=== PATIENT | male | born 1960 | race Caucasian/White ===

== ENCOUNTER 2021-10-30 12:31 | Emergency (ER) | payer BC, SELFPAY ==
[2021-10-30 13:05] VITALS: BP 132/78; PULSE 68; RESP 19; TEMP 36.9; O2SAT 100; BMI 28.5
--- NOTE | 2021-10-30 13:25 | HMH.EDUTC ---
[facility] Disposition Clinical Impression: Upper respiratory infection, viral Disposition: Home, Self-Care Condition on Discharge: Good Instructions: DI for Viral Upper Respiratory Infection -- Adult Additional Instructions: covid swab was sent to lab, call later today for results. self isolate until test results are known to be negative No sign of a bacterial infection. Likely viral. Viruses can take 7-14 days to run their course. Nasal saline and bulb syringe or nose Susanne to remove nasal drainage to help with nasal congestion. Hard to eat, drink, sleep with nasal congestion so important to keep this cleaned out. Monitor temp. Tylenol or Motrin as needed for pain or fever Encourage fluids, water, Gatorade, Powerade, Pedialyte if /toddler/child Warm salt water gargles Warm fluids Sore throat lozenges Sleep elevated Humidifier/vaporizer Follow-up immediately for new or worsening symptoms or no noticeable improvement over the next 48-72 hours. Referrals: Denis Taylor MD [Primary Care Provider] - Time of Disposition: 13:31 Medical Decision Making - Helder Inquiry Pt receiving controlled substance: No Vital Signs: 10/30/21 13:05 Temperature 98.4 F Temperature Source Oral Pulse Rate [Right Brachial] 68 Respiratory Rate 19 Blood Pressure [Right Arm] 132/78 Blood Pressure Mean [Right Arm] 96 Blood Pressure Source [Right Arm] Automatic Cuff Blood Pressure Position [Right Arm] Sitting 02 Sat by Pulse Oximetry 100 Oxygen Delivery Method Room Air [facility] HPI - General Chief complaint: Urgent Treatment Center Stated complaint: covid symptoms Time Seen by Provider: 10/30/21 13:25 Mode of Arrival: Ambulatory Source of Information: Patient Limitations: No Limitations Description of Symptoms (Recalled from Triage Doc. by RN): PATIENT C/O BODY ACHES AND FEVER X 1 WEEK HEENT Symptoms (Recalled from RN notes): No Resp Symptoms (Recalled from RN notes): No Skin Symptoms (Recalled from RN notes): No MS Symptoms (Recalled from RN notes): Yes Functional Status (Recalled from RN notes): WNL - History of Present Illness Provider Complaint: 61 yr old male presents for body aches,cough and fever for 3 days. - Related Data Allergies Allergy/AdvReac Type Severity Reaction Status Date / Time No Known Allergies Allergy Verified 10/30/21 13:22 - Worker's Comp Is this a Worker's Comp case?: No [facility] History - Hepatitis A Screen Drug use history?: No High risk sexual behaviors?: No History of sexually transmitted infection?: No Currently employed?: No Childcare worker?: No Do you have indoor plumbing?: Yes Do you have electricity?: Yes Attestation statement:: This patient has been screened for Hepatitis A risk factors. I have reviewed the patient's past medical history: Yes ROS Obtained: Yes Systems reviewed as appropriate & no additional complaints - Constitutional Constitutional: Reports system reviewed and no additional complaints, except as docu, Reports body ache, Denies fatigue, Reports fever(s) - Eyes Eyes: Reports system reviewed and no additional complaints, except as docu, Denies dry eyes - ENT Ears, Nose, Mouth, and Throat: Reports system reviewed and no additional complaints, except as docu, Reports nasal congestion, Denies sore throat - Cardiovascular Cardiovascular: Reports system reviewed and no additional complaints, except as docu, Denies chest pain - Respiratory Respiratory: Reports system reviewed and no additional complaints, except as docu, Denies change in phlegm color, Reports cough - Gastrointestinal Gastrointestingal: Reports: system reviewed and no additional complaints, except as docu. Denies: abdominal pain - Genitourinary Male Genitourinary: Reports system reviewed and no additional complaints, except as docu - Musculoskeletal Musculoskeletal: Reports system reviewed and no additional complaints, except as docu, Denies joint pain - Integumentary/Breasts Skin/B
[2021-10-30 13:30] LABS: UTC Influenza A Antigen Negative (Negative); UTC Influenza B Antigen Negative (Negative)
[2021-10-30 13:37] VITALS: BP 132/78; PULSE 68; RESP 19; TEMP 36.9; O2SAT 100
[2021-10-30 14:34] LABS: Adenovirus,PCR Not Detected (NotDetected); Bordetella Pertussis Not Detected (NotDetected); Chlamydophila Pneumoniae, PCR Not Detected (NotDetected); Coronavirus 229E Not Detected (NotDetected); Coronavirus NL63 Not Detected (NotDetected); Coronavirus OC43 Not Detected (NotDetected); Coronovirus HKU1,PCR Not Detected (NotDetected); Human Metapneumovirus Not Detected (NotDetected); Influenza A, PCR Not Detected (NotDetected); Influenza AH1, 2009 Not Detected (NotDetected); Influenza AH1, PCR Not Detected (NotDetected); Influenza AH3,PCR Not Detected (NotDetected); Influenza B, PCR Not Detected (NotDetected); Mycoplasma Pneumoniae, PCR Not Detected (NotDetected); Parainfluenza 1, PCR Not Detected (NotDetected); Parainfluenza 2, PCR Not Detected (NotDetected); Parainfluenza 3, PCR Not Detected (NotDetected); Parainfluenza 4, PCR Not Detected (NotDetected); Respiratory Syncytial Virus Not Detected (NotDetected); Rhinovirus/Enterovirus Not Detected (NotDetected)
[2021-10-30 16:00] LABS: Coronavirus 19, PCR Detected (NotDetected)
== END 2021-10-30 13:41 | disposition home or self-care (01) ==
PROVIDERS: Emergency Provider Nurse Practitioner Family; PCP Family Medicine
DX: U07.1 COVID-19 (principal); J06.9 Acute upper respiratory infection, unspecified
CPT/HCPCS: 87581; 87632; 87798; 87804; 99202; C9803; G0463; U0003; U0005

== ENCOUNTER → 2023-05-24 07:59 | Outpatient (CLI) | payer BC, SELFPAY ==
--- NOTE | 2023-05-24 08:03 | CT_ITS ---
FINAL REPORT TECHNIQUE: Axial CT images of the chest were obtained without contrast. Low-dose protocol was utilized. This study was performed with techniques to keep radiation doses as low as reasonably achievable (ALARA). Individualized dose reduction techniques using automated exposure control or adjustment of mA and/or kV according to the patient's size were employed. CLINICAL HISTORY: H/O TOBACCO USE, former smoker quit 20 years ago. smoked 1.5 ppd x 30 years COMPARISON: None FINDINGS: CT CHEST WITHOUT, LOW DOSE SCREENING CT Di Vol: 2.90 mGy DLP: 105.25 mGy*cm There is no axillary, mediastinal, or hilar adenopathy. The heart size is normal. There is no pleural or pericardial effusion. The lung windows show an 8 mm right lower lobe nodule seen on image 56. There are scattered other less than 5 mm bilateral pulmonary nodules. There is mild emphysema. Mild scarring. Limited images of the upper abdomen demonstrate no acute findings. IMPRESSION: LR Category 4A: 3 month follow-up low-dose chest CT is recommended. Reviewed, Interpreted and Dictated by Lyndon Mcpherson III, MD Transcribed by Izabel Phipps Authenticated and . [facility]
== END ==
PROVIDERS: PCP Family Medicine; Visit Provider Family Medicine
DX: Z87.891 Personal history of nicotine dependence (principal); Z12.2 Encounter for screening for malignant neoplasm of respiratory organs
CPT/HCPCS: 71271

== ENCOUNTER → 2023-08-31 14:40 | Outpatient (CLI) | payer BC, SELFPAY ==
--- NOTE | 2023-08-31 14:46 | CT_ITS ---
FINAL REPORT TECHNIQUE: Axial images were obtained from the lung apex to the mid abdomen by computed tomography. Coronal and sagittal reformatted images were obtained. This study was performed with techniques to keep radiation doses as low as reasonably achievable, (ALARA). Individualized dose reduction techniques using automated exposure control or adjustment of mA and/or kV according to the patient's size were employed. CLINICAL HISTORY: ABNORMAL CT LUNG SCREENING COMPARISON: 05/24/2023 FINDINGS: Multiple small axillary nodes are noted. There is no hilar or mediastinal adenopathy. Mild changes of emphysema are present as well as mild scarring. Heart size is normal. There is no pericardial or pleural effusion. Limited images of the upper abdomen are unremarkable. There is an 8 mm lobular ground glass nodule noted in the right lower lobe on image #60, stable. There is a 4 mm nodule in the right lower lobe, seen on image #70, also stable. No new masses or nodules are identified. Several small calcified granulomas are present. IMPRESSION: No change 8 mm lobular groundglass nodule since the prior CT of May 24. This is a category 3 exam, and would suggest a 6-month follow-up LDCT. Reviewed, Interpreted and Dictated by Lyndon Mcpherson III, MD Transcribed by Yasmin Saucedo Authenticated and [facility]
== END ==
PROVIDERS: PCP Family Medicine; Visit Provider Family Medicine
DX: R91.8 Other nonspecific abnormal finding of lung field (principal)
CPT/HCPCS: 71250

== ENCOUNTER 2025-04-03 07:48 | Outpatient (CLI) | payer OTHER, SELFPAY ==
--- NOTE | 2025-04-03 07:53 | CT_ITS ---
FINAL REPORT TECHNIQUE: Thin section axial images were obtained from the lung apices to the upper abdomen by computed tomography. Reformatted images were obtained and reviewed. This study was performed with techniques to keep radiation doses al low as reasonably achievable (ALARA). Individualized dose reduction techniques using automated exposure control or adjustment of mA and/or kV according to the patient's size were employed. CLINICAL HISTORY: lung screening, former smoke (quit 20 yrs ago), smoked 1 pack per day for 25 yrs. COMPARISON: Chest CT, 08/31/2023, LDCT, 05/24/2023 FINDINGS: CHEST CT LOW DOSE 64-year-old male, former smoker who quit 20 years ago, 69-rfzu-debn history CTDI vol (mGy): 2.90 DLP (mGy-cm): 108.64 There is no axillary adenopathy. There is no mediastinal or hilar mass or adenopathy. The heart is normal in size. There is no pericardial or pleural effusion. Lung window images demonstrate a persistent ill-defined opacity in the right lower lobe, measuring 7 mm in size, best seen on image #62 of series 4, stable. There is a 4 mm nodule in the right lung base, best seen on image #71 of series 4, also stable. These have been stable since the prior CT of 05/24/2023, favor benign. No new nodules are identified. Limited images of the upper abdomen are unremarkable. IMPRESSION: Lung-RADS category 1. Recommend 12 month follow up low dose chest CT. Reviewed, Interpreted and Dictated by Azeem Christian MD Transcribed by Yasmin Saucedo Authenticated and [facility]
== END 2025-04-03 23:59 | disposition home or self-care (01) ==
LOC: RAD 07:48
PROVIDERS: PCP Family Medicine; Visit Provider Family Medicine
DX: R91.8 Other nonspecific abnormal finding of lung field (principal); Z12.2 Encounter for screening for malignant neoplasm of respiratory organs
CPT/HCPCS: 71271

== ENCOUNTER 2025-10-31 12:42 | Outpatient (CLI) | payer OTHER, SELFPAY ==
--- NOTE | 2025-10-31 12:51 | ECG_ITS ---
APPROVED REPORT Exam: Resting ECG HR:42 bpm ECG Measurements Heart Rate 42 AXES [place] 146 P 47 QRSd 101 QRS 19 QT 431 T 17 QTc 371 Conclusion SINUS BRADYCARDIA BORDERLINE ECG UNCONFIRMED REPORT Electronically signed by : Alexis Daniels MD 11/01/2025 21:54:57
== END 2025-10-31 23:59 | disposition home or self-care (01) ==
LOC: RT 12:42
PROVIDERS: PCP Family Medicine; Visit Provider Family Medicine
DX: R00.1 Bradycardia, unspecified (principal)
CPT/HCPCS: 93005

== ENCOUNTER 2025-11-10 10:23 | Outpatient (CLI) | payer OTHER, SELFPAY ==
--- OUTSIDE RECORDS SUMMARY | 2024-09-20 05:00 | XMS_ITS ---
Author Organization [facility] Address [address] [facility] [address] [facility] [address] [place] [id number] Care Team Providers Care Safety Admin Assistant Name Role Phone Antonio Taylor Primary Care Provider REASON FOR VISIT 6 mo ck up fasting, Needs labs, low dose chest CT, shingles & flu vaccines Encounters Encounter Location Date Provider Diagnosis [facility] [address] [facility] [address] [facility] [address] [place] [id number] 09/20/2024 Antonio Taylor Plan Of Treatment Next Appt Details Provider Name:Antonio Coffey er, 11/28/2025 11:30:00 AM, [address] [facility], [address], [place], [id number], Progress Notes * Myke LYNNDOB:1960 (65 yo M)Acc No.[id number]:09/20/2024 Progress Notes Patient: Myke KRISHNAMURTHY Provider: Antonio Taylor M.D. :1960 A ge:64 Y S ex:Male Date:09/20/2024 Address:[address] [place] [address] [id number] Subjective: * Chief Complaints: * 1 . 6 mo ck up fasting. 2. Needs labs, low dose chest CT, shingles & flu vaccines. * Medical History: Objective: * Vitals: Assessment: Plan: * Treatment: * Images: Billing Information: * Visit Code: * Procedure Codes: * Electronic signature of Antonio Taylor MD on 11/10/2025 at 10:26 AM EST Sign off status: Pending * Provider: Antonio Taylor M.D. Date: 11/20/2023 Generated for Arminda garcia/Americo/Tierra on: 01/11/2025 10:26 AM EST
--- OUTSIDE RECORDS SUMMARY | 2025-03-24 09:15 | XMS_ITS ---
Author Organization [facility] Address [address] [facility] [address] [place] [id number] Care Team Providers Care Test Skein Winder Name Role Phone Antonio Taylor Primary Care Provider [phone] Allergies No Known Allergies Results Component Value Reference Range Notes P-Comprehensive Metabolic Pa rhonda (CMP) Reviewed date:04/21/2025 04:17:20 PM Interpretation:alt 78 Performing Lab: Notes/Report: Test performed by [employer] [address] [place], [place] [address] [facility] [address] , [address], [place] [address] Raymon Sauer MD, Jockey Agent CLIA: [id number] Sodium 141 135-145 mmol/L Potassium 4.6 3.5-5.3 mmol/L Chloride 104 97-108 mmol/L CO2 25 22-32 mmol/L Glucose 89 65-99 mg/dL BUN 12 8-23 mg/dL Creatinine 0.93 0.70-1.30 mg/dL Calcium 10.1 8.6-10.4 mg/dL eGFR by Creatinine 92 >59 mL/min/1.73m2 Protein 7.5 6.0-8.3 g/dL Albumin 4.7 3.5-5.3 g/dL Alkaline Phosphatase 120 40-129 IU/L ALT (SGPT) 78 <5-55 IU/L AST (SGOT) 42 <5-46 IU/L Bilirubin, Total 0.3 <0.2-1.2 mg/dL A/G Ratio 1.7 1.1-2.5 P-PSA Reviewed date:04/21/2025 04:17:41 PM Interpretation:4.89 Performing Lab: Notes/Report: Test performed by [facility] [address] [facility] , [address], [place] [address] Raymon Sauer MD, Jockey Agent CLIA: [id number] PSA 4.89 <4.00 ng/mL Please note this is an ultrasensitive PSA assay with a lower limit of detection of 0.014 ng/mL. This test is performed by the María ECLIA methodology. Values obtained with different assay methods or kits cannot be directly compared. CT Scan : Chest, low dose Reviewed date:04/04/2025 04:10:06 PM Interpretation:nothing suspicious, annual f/u Performing Lab: Notes/Report: nothing suspicious, annual f/u Reason For Referral Reason chest pain Diagnosis 1 Chest pain, unspecif ied type (R07.9) Referral Organization [facility] Referring Provider First Name Antonio Pennington Referring Provider Last Name Brandon Referring Provider Speciality [facility] ctice Referred Provider Specialty Cardiovascul ar Disease General Notes Sandra Mazariegos 2024 03:00:54 PM > faxed to [facility] Cardiology Referral Priority Routine REASON FOR VISIT check up, Needs labs with PSA, low dose chest CT, & shingles vaccine Medications Medication SIG (Take, Route, Frequency, Duration) Notes Start Date End Date Status Esomeprazole Magnesium 40 MG 1 cap(s) Orally Once a day; Duration: 30 days 03/24/2025 Active Bisoprolol Fumarate 5 MG 1/2 tab(s) oral ly once a day; Duration: 90 days 07/20/2022 Active Temazepam 30 MG 1 capsule at bedtime as needed Orally Once a day 03/24/2025 Active Rosuvastatin Calcium 10 MG 1 tab(s) oral ly once a day; Duration: 90 days 07/20/2022 Active Aspirin Adult Low Dose 81 MG 1 tab(s) orally bedtime 12/01/2016 Acti ve Problems Problem Type SNOMED Code ICD Code Onset Dates Problem Status W/U Status Risk Notes Problem Elevated PSA (694063753) Elevated PSA (R97.20) Active confirmed Problem Chest pain (94170736) Chest pain, unspecified type (R07.9) Active confirmed Vital Signs Blood pressure systolic 140 mm Hg 03/24/20 25 Blood pressure diastolic 90 mm Hg 025 Heart Rate 52 /min 03/24/2025 Height 67 in 03/24/2025 Weight 191.4 lbs 03/24/2025 BMI 29.97 kg/m2 03/24/2025 Encounters Encounter Location Date Provider Diagnosis [facility] [address] [facility] [address] [facility] [address] [place] [id number] 03/24/2025 Antonio Taylor Essential hypertensi on I10 ; Elevated PSA R97.20 ; Chest pain, unspecified type R07.9 ; Hyperlipidemia, unspecified hyperlipidemia type E78.5 ; Other insomnia G47.09 and BMI 29.0-29.9,adult Z68.29 Assessments Encounter Date Diagnosis (ICD Code) Assessment Notes Treatment Notes Treatment Clinical Notes Section Notes 03/24/2025 Essential hypertension (ICD-10 - I10) 03/24/2025 Elevated PSA (ICD-10 - R97.20) 03/24/2025 Chest pain, unspecified type (ICD-10 - R07.9) 03/24/2025 Hyperlipidemia, unspecified hyperlipidemia type (ICD-10 - E78.5) 03/24/2025 Other insomnia (ICD-10 - G47.09) 03/24/2025 BMI 29.0-29.9,adult (ICD-10 - Z68.29) Plan Of Treatment Medication Medication Name Sig Start Date Stop Date Notes Esomeprazole Magnesium 40 MG 1 cap(s) Or ally Once a day; Duration: 30 days 03/24/2025 Temazepam 30 MG 1 capsule at bedtime as needed Orally Once a day 03/24/2025 Rosuvastatin Calcium 10 MG 1 tab(s) oral ly once a day; Duration: 90 days 07/20/2022 Referrals Referral Date Details 03/24/2025 03/24/2025, chest pa in Next Appt Details Follow Up: 4 Weeks, Reason: Provider Name:Atnonio Coffey er, 11/28/2025 11:30:00 AM, [address] [facility] [address] [facility], [address], [place], [id number], Progress Notes * Myke LYNNDOB:1960 (65 yo M)Acc No.[id number]:03/24/2025 Progress Notes Patient: Roosevelt KRISHNAMURTHYmy Provider: Antonio Taylor M.D. :1960 A ge:64 Y S ex:Male Date:03/24/2025 Address:[address] [id number] Subjective: * Chief Complaints: * 1 . Check up. 2. Needs labs with PSA, low dose chest CT, & shingles vaccine. * HPI: G astroenterology: The pt is here today with c/o upper abdominal bloating and shortness of breath. Pt states the shortness of breath is worse when he lays down at night. 64 year old male presents with c/o Abdominal Pain e pigastric. Denies : Nausea. D enies : Vomiting. D enies : Diarrhea. D enies : Fever. D enies : Blood in Stool. C onstitutional: Last visit was February of 2024. PSA at that time was mildly elevated 4.01. C ardiology: 2017 cardiac studies reviewed. 40-50% RCA stenosis. Also stable lung nodule. * ROS: D ERMATOLOGY: no R susanne. n o H alexander. G ASTROENTEROLOGY: no N ausea. n o V omiting. n o D iarrhea.? U ROLOGY: no D ifficulty urinating. n o B lood in urine. * Medical History: s kin cancer, Dr. Marcano in [place], PSA WNL 07/22/22. * Surgical History: h eart cath 40-50% stenosis RCA 12/07/2016, Right Shoulder Repair - Dr. Mosquera at [facility] 03/02/2018. * Hospitalization/Major Diagno stic Procedure: [facility] /covid Oct 2021. * Family History: F ather: alive. M other: , diagnosed with Hypertension, Heart Disease. 1 brother(s) , 1 sister(s) - healthy. 1 son(s) , 1 daughter(s) - healthy. . Pt Uncles on his mother side passed from heart attack. * Social History: C URRENT TOBACCO USE: No S moking Status: P atient does NOT smoke quit 12 years ago.?Caffeine: yes, frequency:. Exercise: no. Marital Status: Single. Occupation: employed. Past smoking status: previous history, Pt states that he stopped smoking in 2002, pt was a smoker for 30 years, 1-1.5 ppd average. Recreational drug use: no. Alcohol: Yes, Type: beer , Frequency:daily ,Years: , Determination:. Sexually active: yes. * Medications: T aking Aspirin Adult Low Dose 81 MG Tablet Delayed Release 1 tab(s) orally bedtime , Taking Temazepam 30 MG Capsule 1 capsule at bedtime as needed Orally Once a day , Taking Rosuvastatin Calcium 10 MG Tablet 1 tab(s) orally once a day , Taking Bisoprolol Fumarate 5 MG Tablet 1/2 tab(s) orally once a day , Medication List reviewed and reconciled with the patient * Allergies: N .K.D.A. Objective: * Vitals: W t: 191.4, Temp: 97.8, BP: 140/90, HR: 52, Nurse: ED, Ht: 67, BMI:29.97. * Examination: G eneral Examination: General Appearance: N AD. H EENT: u nremarkable.?Oral cavity: n o lesions, mucosa moist and WNL, no erythema. N aspen: s upple, no lymphadenopathy. C hest: n ormal shape and expansion. H eart: R SR, 124/84. L ungs: clear to auscultation. A bdomen: Ventral diastasis, umbilical hernia. N eurologic Exam: I ntact, gait normal. S kin: n ormal, no rash. P eripheral pulses: n ormal . B ack: dorsal kyphosis. E xtremities: n o leg edema. Assessment: * Assessment: 1. E ssential hypertension - I10 (Primary) 2 . E levated PSA - R97.20 ? 3 . C hest pain, unspecified type - R07.9 4 . H yperlipidemia, unspecified hyperlipidemia type - E78.5 5 . O ther insomnia - G47.09 ?6. B NC 29.0-29.9,adult - Z68.29 Plan: * Treatment: Value Reference Range A /G Ratio 1.7 1.1-2.5 - * A lbumin 4.7 3.5-5.3 - g/dL * A lkaline Phosphatase 120 40-129 - IU/L * A LT (SGPT) 78 H <5-55 - IU/L * A ST (SGOT) 42 <5-46 - IU/L * B ilirubin, Total 0.3 <0.2-1.2 - mg/dL * B UN 12 8-23 - mg/dL * C alcium 10.1 8.6-10.4 - mg/dL * C hloride 104 97-108 - mmol/L * C O2 25 22-32 - mmol/L * C reatinine 0.93 0.70-1.30 - mg/dL * G lucose 89 65-99 - mg/dL * P otassium 4.6 3.5-5.3 - mmol/L * S odium 141 135-145 - mmol/L * P rotein 7.5 6.0-8.3 - g/dL * e GFR by Creatinine 92 >59 - mL/min/1.73m2 * Zarina Lopez 04/21/2025 04:17:06 PM EDT > Provider reviewed results while patient in office. 2.?Elevated PSA?LAB: P-PSA (Collection Date & Time - 03/24/2025 02:11 PM)?4.89* Value Reference Range P SA 4.89 H <4.00 - ng/mL * Zarina Lopez 04/21/2025 04:17:32 PM EDT > Provider reviewed results while patient in office. 3.?Chest pain, unspecified type? Start Esomeprazole Magnesium Capsule Delayed Release, 40 MG, 1 cap(s), Orally, Once a day, 30 days,30, Refills 3.?Imaging: CT Scan : Chest, low dose (Performed Date - 04/03/2025)?nothing suspicious, annual f/u* Sandra Mazariegos 03/24/2025 03:29 :40 PM > auth#[id number]; valid 03/24/2025- 05/23/2025; CPT code 68039; faxed to [facility] Leticia Mcmillan 03/31/2025 09:14:48 AM >04/03/25 8:00Minerva Ortiz 04/04/2025 04:09:58 PM > Patient informed of normal results. ? Referral To:Cardiovascular Disease ?Reason:chest pain 4.?Hyperlipidemia, unspecified hyperlipidemia type? Refill Rosuvastatin Calcium Tablet, 10 MG, 1 tab(s), orally, once a day, 90 days, 90, Refills 1. ?5.?Other insomnia? Refill Temazepam Capsule, 30 MG, 1 capsule at bedtime as needed, Orally, Once a day, 30, Refills 3. ? * Procedure Codes: 3 077F SYST BP = 140 MM HG6 IT, 3080F DIAST BP = 90 MM HG * Follow Up: 4 Weeks * Images: Billing Information: * Visit Code: 53570 Office Visit, Est Pt., Level 4. * Procedure Codes: 3077F SYST BP = 140 MM HG6 IT. 3080F DIAST BP = 90 MM HG. * Electronic signature of Antonio Taylor MD on 11/10/2025 at 10:25 AM EST Sign off status: Pending * Provider: Antonio Taylor M.D. Date: 0 03/24/2025 Generated for Nitai jose/Americo/eTransmitting on: 1 01/11/2025 10:25 AM EST History and Physical Notes * HPI (History of Present Illness) Category Sub-Category Detail Notes Category Not es Cardiology [address] udies reviewed. 40-50% RCA stenosis. Also stable lung nodule. Gastroenterology Fever Vomiting Abdominal Pain epigastric Diarrhea Blood in Stool Nausea Constitutional Last visit wa s February of 2024. PSA at that time was mildly elevated 4.01. Examination Category Sub-Category Detail Notes Category Not es General Examination HEENT: unremarkable Heart: RSR, 124/84 Lungs: clear to auscultatio n Abdomen: Ventral diastasis, u mbilical hernia Extremities: no leg edema General Appearance: NAD Skin: normal, no rash Neurologic Exam: Intact, gait normal Neck: supple, no lymphaden opathy Oral cavity: no lesions, mucosa m oist and WNL, no erythema Peripheral pulses: normal Back: dorsal kyphosis Chest: normal shape and exp ansion Consultation Request Notes Referral Date Referring Provider Referred Provider Not es 03/24/2025 Antonio Taylor , chest pain
--- OUTSIDE RECORDS SUMMARY | 2025-04-21 04:30 | XMS_ITS ---
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 Name Role Phone Antonio Taylor Primary Care Provider [phone] Zarina Lopez Unavailable [phone] Allergies No Known Allergies REASON FOR VISIT 4 weeks Medications Medication SIG (Take, Route, Frequency, Duration) Notes Start Date End Date Status Aspirin Adult Low Dose 81 MG 1 tab(s) orally bedtime 12/01/2016 Acti ve Esomeprazole Magnesium 40 MG 1 cap(s) Orally Once a day; Duration: 30 days 03/24/2025 Active Bisoprolol Fumarate 5 MG 1/2 tab(s) oral ly once a day; Duration: 90 days 07/20/2022 Active Temazepam 30 MG 1 capsule at bedtime as needed Orally Once a day 03/24/2025 Active Rosuvastatin Calcium 10 MG 1 tab(s) oral ly once a day; Duration: 90 days 07/20/2022 Active Problems Problem Type SNOMED Code ICD Code Onset Dates Problem Status W/U Status Risk Notes Problem Body mass index 30+ - obesity (490660776) BMI 30.0-30.9,a dult (Z68.30) Active confirmed Vital Signs Blood pressure systolic 120 mm Hg 04/21/20 25 Blood pressure diastolic 80 mm Hg 025 Heart Rate 51 /min 04/21/2025 Height 67 in 04/21/2025 Weight 192.0 lbs 04/21/2025 BMI 30.07 kg/m2 04/21/2025 Encounters Encounter Location Date Provider Diagnosis [facility]ara[facility]uckNicholas [address] [facility] 36 [facility] [address] [place] [phone] 04/21/2025 Zarina John Elevated prostate specific antigen [PSA] R97.20 ; Abdominal pain R10.9 and BMI 30.0-30.9,adult Z68.30 Assessments Encounter Date Diagnosis (ICD Code) Assessment Notes Treatment Notes Treatment Clinical Notes Section Notes 04/21/2025 Elevated prostate specific antigen [PSA] (ICD-10 - R97.20) will need to monitor PSA; has [address] Taylor; now without any urinary issues 04/21/2025 Abdominal pain (ICD-10 - R10.9) pain has resolved will continue PPI; Olive diet without spicy, salty,acidic, greasy,carbonate d drinks, or caffeine 04/21/2025 BMI 30.0-30.9,adul t (ICD-10 - Z68.30) 04/21/2025 Other Instructed to use lubricating eye drops for eye redness, watch diet if stomach problems come back, follow up as needed. Went over chest CT results, stable will do another in a year. PSA a little elevated- no issues urinating. Needs labs at next visit. Plan Of Treatment Treatment Notes Assessment Notes Elevated prostate specific antigen [PSA] will need to monitor PSA; has [address] Taylor; now without any urinary issues Abdominal pain pain has resolved wi ll continue PPI; Olive diet without spicy, salty,acidic, greasy,carbonated drinks, or caffeine Other Instructed to use celso bricating eye drops for eye redness, watch diet if stomach problems come back, follow up as needed. Went over chest CT results, stable will do another in a year. PSA a little elevated- no issues urinating. Needs labs at next visit. Next Appt Details Follow Up: prn, 1 week if no t better,6 Months, Reason: Provider Name:Antonio murray, 11/28/2025 11:30:00 AM, [address] [facility], [address], [place], [place], [phone], Progress Notes * Myke LYNNDOB:1960 (65 yo M)Acc No.[id number]:04/21/2025 Progress Notes Patient: Cecily CALDWELLMyke Provider: ALLY Vincent :1960 A ge:64 Y S ex:Male Date:04/21/2025 Address:[address] [address] [id number] Pcp:Antonio Taylor Subjective: * Chief Complaints: * 1 . 4 weeks. * HPI: H PI: 64 year old male presents with c/o Patient is here today for?Pt is here today for a 4 week f/u. Pt sts he did have a CT scan done last month . G astroenterology: c/o Abdominal Pain P t sts he is no longer having any pain.? * ROS: C ARDIOLOGY: Positive for h as seen cardology and adelina have a stress test. D ERMATOLOGY: no R susanne. n o H alexander. G ASTROENTEROLOGY: no N ausea. n o V omiting. n o D iarrhea.? U ROLOGY: no D ifficulty urinating. n o B lood in urine. n o F requent urination. n o U rinary incontinence. n o V oiding dysfunction.? 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 * Surgical History: h eart cath 40-50% stenosis RCA 12/07/2016, Right Shoulder Repair - Dr. Mosquera at [facility] 03/02/2018. * Hospitalization/Major Diagno stic Procedure: [facility] /covid Oct 2021. * Family History: F [...] Release 1 tab(s) orally bedtime , Taking Bisoprolol Fumarate 5 MG Tablet 1/2 tab(s) orally once a day , Taking Esomeprazole Magnesium 40 MG Capsule Delayed Release 1 cap(s) Orally Once a day , Taking Rosuvastatin Calcium 10 MG Tablet 1 tab(s) orally once a day , Taking Temazepam 30 MG Capsule 1 capsule at bedtime as needed Orally Once a day , Medication List reviewed and reconciled with the patient * Allergies: N .K.D.A. Objective: * Vitals: W t: 192.0, Temp: 97.6, BP: 120/80, HR: 51, Nurse: [facility], Ht: 67, BMI:30.07. * P ast Orders: L ab:P-Comprehensive Metabolic Panel (CMP) (Order Date - 03/24/2025) (Collection Date & Time - 03/24/2025 02:11 PM) Result: alt 78 Value Reference Range A/G Ratio 1.7 1.1-2.5 - Albumin 4.7 3.5-5.3 - g/dL Alkaline Phosphatase 120 40-129 - IU/L ALT (SGPT) 78 H <5-55 - IU/L AST (SGOT) 42 <5-46 - IU/L Bilirubin, Total 0.3 <0.2-1.2 - mg/dL BUN 12 8-23 - mg/dL Calcium 10.1 8.6-10.4 - mg/dL Chloride 104 97-108 - mmol/L CO2 25 22-32 - mmol/L Creatinine 0.93 0.70-1.30 - mg/dL Glucose 89 65-99 - mg/dL Potassium 4.6 3.5-5.3 - mmol/L Sodium 141 135-145 - mmol/L Protein 7.5 6.0-8.3 - g/dL eGFR by Creatinine 92 >59 - mL/min/1.73m2 Clinical Info: Room #10 L ab:P-PSA (Order Date - 03/24/2025) (Collection Date & Time - 03/24/2025 02:11 PM) Result: 4.89 Value Reference Range PSA 4.89 H <4.00 - ng/mL Clinical Info: Room #10 I maging:CT Scan : Chest, low dose (Order Date - 03/24/2025) (Performed Date - 04/03/2025) Result: nothing suspicious, annual f/u * Examination: G eneral Examination: General Appearance: N AD, alert, pleasant. H EENT: l eft eye redness. H eart: R RR. L ungs: n ormal, clear to auscultation. A bdomen: b owel sounds present, normal, nontender, soft. G astroenterology: Abdomen: B S present, soft, nontender, no epigastric tenderness. Assessment: * Assessment: 1. E levated prostate specific antigen [PSA] - R97.20 (Primary) 2 . A bdominal pain - R10.9 3 . B ID 30.0-30.9,adult - Z68.30 Plan: * Treatment: 2. A bdominal pain Notes: pain has resolved will continue PPI; Olive diet without spicy, salty,acidic, greasy,carbonated drinks, or caffeine 3. O thers Notes: Instructed to use lubricating eye drops for eye redness, watch diet if stomach problems come back, follow up as needed. Went over chest CT results, stable will do another in a year. PSA a little elevated- no issues urinating. Needs labs at next visit. * Procedure Codes: 1 036F TOBACCO NON-USER, G8420 BMI<30 AND >=22 CALC & DOCU * Follow Up: p rn, 1 week if not better,6 Months * Images: Billing Information: * Visit Code: 54530 Office Visit, Est Pt., Level 4. * Procedure Codes: 1036F TOBACCO NON-USER. G8420 BMI<30 AND >=22 CALC & DOCU. * Electronic signature of Argelia Lopez APRN on 11/10/2025 at 10:26 AM EST Sign off status: Pending * Provider: ALLY Vincent Date: 0 04/21/2025 Generated for Arminda garcia/Americo/Tierra on: 1 01/11/2025 10:26 AM EST History and Physical Notes * HPI (History of Present Illness) Category Sub-Category Detail Notes Category Not es Gastroenterology Abdominal Pain Pt sts he is no longer having any pain HPI Patient is here today for Pt is here today for a 4 week f/u. Pt sts he did have a CT scan done last month Examination Category Sub-Category Detail Notes Category Not es General Examination HEENT: left eye redness Heart: RRR Lungs: normal, clear to aus cultation Abdomen: bowel sounds present , normal, nontender, soft General Appearance: NAD, alert, pleasant Gastroenterology Abdomen: BS present, sof t, nontender, no epigastric tenderness
--- OUTSIDE RECORDS SUMMARY | 2025-10-31 06:30 | XMS_ITS ---
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 Name Role Phone Antonio Taylor Primary Care Provider Allergies No Known Allergies Results Component Value Reference Range Notes P-Comprehensive Metabolic Pa rhonda (CMP) Reviewed date:11/03/2025 05:02:14 PM Interpretation:ALT 73 Performing Lab: Notes/Report: Test performed by [facility] [address] [place] [address] , [address], [address] Rico Barone MD, PhD, [facility], Cmm Operator CLIA: [id number] Sodium 140 135-145 mmol/L Potassium 4.5 3.5-5.3 mmol/L Chloride 104 97-108 mmol/L CO2 24 20-32 mmol/L Glucose 95 65-99 mg/dL BUN 14 8-23 mg/dL Creatinine 1.01 0.70-1.30 mg/dL Calcium 9.7 8.6-10.4 mg/dL eGFR by Creatinine 83 >59 mL/min/1.73m2 Protein 7.0 6.0-8.3 g/dL Albumin 4.6 3.5-5.3 g/dL Alkaline Phosphatase 103 44-138 IU/L ALT (SGPT) 73 <5-55 IU/L AST (SGOT) 36 <5-46 IU/L Bilirubin, Total 0.4 <0.2-1.2 mg/dL A/G Ratio 1.9 1.1-2.5 P-Lipid Panel Reviewed date:11/03/2025 05:02:14 PM Interpretation:Trigs 252, HDL 37 Performing Lab: Notes/Report: Test performed by [facility] [address] [facility] [address], [place] [address] Reyna Barone MD, PhD, [facility], Cmm Operator [facility]: [id number] Lipid Panel Footnote See Below *Based on optimal reference values. Please refer to the DOS for additional information regarding diagnostic lipid reference ranges, patient management based on the recently updated lipid guidelines ([employer] College [employer] Heart Association Task Force on Clinical Practice Guidelines (2018), and pediatric diagnostic lipid reference values (<18 years old). Total Cholesterol 138 <200 mg/dL Triglycerides 252 <150 mg/dL HDL Cholesterol 37 >40 mg/dL Total Cholesterol / HDL Ratio* 3.73 <4.99 Ratio Non-HDL Cholesterol 101 <130 mg/dL LDL Cholesterol (Calculation) 51 <100 mg/dL LDL / HDL Ratio* 1.37 <2.49 Ratio LDL Cholesterol Patient History Test Date: 08/24/2022 LDL Results: 56 Units: mg/dL % Change: - Test Date: 10/31/2025 LDL Results: 51 Units: mg/dL % Change: -8% P-PSA Reviewed date:11/03/2025 05:02:14 PM Interpretation:5.41 Performing Lab: Notes/Report: Test performed by [facility] [address] [place] [address] , [address], [place] [address] Reyna Barone MD, PhD, [facility], Cmm Operator CLIA: [id number] PSA 5.41 <4.00 ng/mL Please note this is an ultrasensitive PSA assay with a lower limit of detection of 0.014 ng/mL. This test is performed by the María ECLIA methodology. Values obtained with different assay methods or kits cannot be directly compared. EKG Reviewed date:11/03/2025 05:02:14 PM Interpretation: Performing Lab: Notes/Report: EKG Reviewed date:11/03/2025 05:02:14 PM Interpretation: Performing Lab: Notes/Report: Reason For Referral Reason elevated PSA Diagnosis 1 Elevated PSA (R97.20 ) [facility] Referring Provider First Name Antonio Pennington Referring Provider Last Name Brandon Referring Provider Speciality Family [facility] ctice Referred Provider Specialty Urology General Notes Sandra Mazariegos 2024 01:55:33 PM > lvm for patient with appt date and time (11/10/2025 at 10:00am) Referral Priority Routine REASON FOR VISIT 6 months, Needs labs & shingles vaccine Medications Medication SIG (Take, Route, Frequency, Duration) Notes Start Date End Date Status Rosuvastatin Calcium 10 MG 1 tab(s) oral ly once a day; Duration: 90 days 07/20/2022 Active Esomeprazole Magnesium 40 MG 1 cap(s) Orally Once a day; Duration: 30 days Active Aspirin Adult Low Dose 81 MG 1 tab(s) orally bedtime 12/01/2016 Acti ve Metoprolol Succinate ER 25 MG 1 tablet Orally Once a day; Duration: 30 days 10/31/2025 Active Temazepam 30 MG 1 capsule at bedtime as needed Orally Once a day 10/31/2025 Active Vital Signs Blood pressure systolic 140 mm Hg 10/31/20 25 Blood pressure diastolic 74 mm Hg 025 Heart Rate 43 /min 10/31/2025 Height 67 in 10/31/2025 Weight 195.4 lbs 10/31/2025 BMI 30.6 kg/m2 10/31/2025 Encounters Encounter Location Date Provider Diagnosis [facility] [address] [facility] 36 [facility] [address] [place] [phone] 10/31/2025 Antonio Taylor Sinus bradycardia R0 0.1 ; Pterygium of left eye H11.002 ; Essential hypertension I10 ; Elevated PSA R97.20 ; Other insomnia G47.09 and Hyperlipidemia, unspecified hyperlipidemia type E78.5 Assessments Encounter Date Diagnosis (ICD Code) Assessment Notes Treatment Notes Treatment Clinical Notes Section Notes 10/31/2025 Sinus bradycardia (ICD-10 - R00.1) 10/31/2025 Pterygium of left eye (ICD-10 - H11.002) [facility] 10/31/2025 Essential hypertension (ICD-10 - I10) 10/31/2025 Elevated PSA (ICD-10 - R97.20) 10/31/2025 Other insomnia (ICD-10 - G47.09) 10/31/2025 Hyperlipidemia, unspecified hyperlipidemia type (ICD-10 - E78.5) Plan Of Treatment Medication Medication Name Sig Start Date Stop Date Notes Rosuvastatin Calcium 10 MG 1 tab(s) oral ly once a day; Duration: 90 days 07/20/2022 Bisoprolol Fumarate 5 MG 1/2 tab(s) orally once a day 06/22 Metoprolol Succinate ER 25 MG 1 tablet O rally Once a day; Duration: 30 days 10/31/2025 Temazepam 30 MG 1 capsule at bedtime as needed Orally Once a day 10/31/2025 Treatment Notes Assessment Notes Pterygium of left eye To go to [facility] today Referrals Referral Date Details 10/31/2025 10/31/2025, elevated PSA Next Appt Details Follow Up: 4 Weeks, Reason: Provider Name:Antonio Coffey er, 11/28/2025 11:30:00 AM, [address] [facility] 36 [facility], [address], [place], [phone], Progress Notes * José Luis LYNN:1960 (65 yo M)Acc No.[id number]:10/31/2025 Progress Notes Patient: Myke KRISHNAMURTHY Provider: Antonio Taylor M.D. :1960 A ge:65 Y S ex:Male Date:10/31/2025 Address[address] [address], [id number] Subjective: * Chief Complaints: * 1 . 6 months. 2. Needs labs & shingles vaccine. * HPI: C ardiology: 65 year old male presents with c/o Blood Pressure Elevated P t is here today for 6 month check up on Hypertension. Pt states he does check his BP occasionally and it has been doing good. Pt is fasting and is needing a refill for rosuvastatin and Temazepam sent to [facility] in [place]. See 04/15/25 Cardiology evaluation. Insurance did not cover testing and echo and myoview wer NOT DONE and there was no follow-up. Sinus bradycardia. * ROS: C ONSTITUTIONAL: Positive for A rachaelher physician seen since last visit? No, Change in medication since last visit? No, Are you taking antibiotics? No, Are you taking steroids? No. D ERMATOLOGY: no R susanne. n o H alexander. G ASTROENTEROLOGY: no N ausea. n o V omiting. n o D iarrhea.? U ROLOGY: no D ifficulty urinating. n o B lood in urine. * Medical History: s kin cancer, Dr. Marcano in [place], PSA WNL 07/22/22. * Surgical History: h eart cath 40-50% stenosis RCA 12/07/2016, Right Shoulder Repair - Dr. Mosquera at [facility] 03/02/2018. * Hospitalization/Major Diagno stic Procedure: Psychiatric /covid Oct 2021. * Family History: F ather: alive. M other: , diagnosed with Hypertension, Heart Disease. 1 brother(s) , 1 sister(s) - healthy. 1 son(s) , 1 daughter(s) - healthy. . Pt Uncles on his mother side passed from heart attack. * Social History: C URRENT TOBACCO USE S moking Status: P atient does NOT smoke quit 12 years ago. * Medications: T aking Aspirin Adult Low [...] 1 cap(s) Orally Once a day , Medication List reviewed and reconciled with the patient * Allergies: N .K.D.A. Objective: * Vitals: W t: 195.4, Temp: 97.5, BP: 140/74, HR: 43, Nurse: ED, Ht: 67, BMI:30.6. * Examination: G eneral Examination: General Appearance: N AD. H EENT: i nflammed ptyrigium of OS lateral aspect. , PERRLA. O ral cavity: n o lesions, mucosa moist and WNL, no erythema. N aspen: s upple, no lymphadenopathy. C hest: n ormal shape and expansion. H eart: s inus bradycardia, 44. L ungs: c lear to auscultation. A bdomen: Ventral diastasis, umbilical hernia. N eurologic Exam: I ntact, gait normal. S kin: n ormal, no rash. P eripheral pulses: n ormal . B ack: dorsal kyphosis. E xtremities: t race leg edema. Assessment: * Assessment: 1. S inus bradycardia - R00.1 (Primary) 2 . P terygium of left eye - H11.002 3 . E ssential hypertension - I10 4 . E levated PSA - R97.20 5 . O ther insomnia - G47.09 6 . H yperlipidemia, unspecified hyperlipidemia type - E78.5 Plan: * Treatment: 2.?Pterygium of left eye? Notes: [facility]??3.?Essential hypertension?LAB: P-Comprehensive Metabolic Panel (CMP) (Collection Date & Time - 10/31/2025 10:32 AM)?ALT 73* Value Reference Range A /G Ratio 1.9 1.1-2.5 - * A lbumin 4.6 3.5-5.3 - g/dL * A lkaline Phosphatase 103 44-138 - IU/L * A LT (SGPT) 73 H <5-55 - IU/L * A ST (SGOT) 36 <5-46 - IU/L * B ilirubin, Total 0.4 <0.2-1.2 - mg/dL * B UN 14 8-23 - mg/dL * C alcium 9.7 8.6-10.4 - mg/dL * C hloride 104 97-108 - mmol/L * C O2 24 20-32 - mmol/L * C reatinine 1.01 0.70-1.30 - mg/dL * G lucose 95 65-99 - mg/dL * P otassium 4.5 3.5-5.3 - mmol/L * S odium 140 135-145 - mmol/L * P rotein 7.0 6.0-8.3 - g/dL * e GFR by Creatinine 83 >59 - mL/min/1.73m2 * Joann Harry 11/03/2025 04 :59:35 PM EST > See phone encounter 4.?Elevated PSA?LAB: P-PSA (Collection Date & Time - 10/31/2025 10:32 AM)?5.41* Value Reference Range P SA 5.41 H <4.00 - ng/mL * Joann Harry 11/03/2025 04 :59:35 PM EST > See phone encounter ? Referral To:Urology ?Reason:elevatedPSA 5.?Other insomnia? Refill Temazepam Capsule, 30 MG, 1 capsule at bedtime as needed, Orally, Once a day, 30, Refills 3. ?6.?Hyperlipidemia, unspecified hyperlipidemia type? Refill Rosuvastatin Calcium Tablet, 10 MG, 1 tab(s), orally, once a day, 90 days, 90, Refills 1. ?LAB: P-Lipid Panel (Collection Date & Time - 10/31/2025 10:32 AM)?Trigs 252, HDL 37* Value Reference Range C holesterol / HDL Ratio 3.73 <4.99 - Ratio * C holesterol 138 <200 - mg/dL * H DL Cholesterol 37 L >40 - mg/dL * L DL Cholesterol (Calculation) 51 <100 - mg/d L * L DL/HDL Ratio 1.37 <2.49 - Ratio * N on-HDL Cholesterol 101 <130 - mg/dL * T riglycerides 252 H <150 - mg/dL * L ipid Panel Footnote See Below - * Joann Harry 11/03/2025 04 :59:35 PM EST > See phone encounter * Procedure Codes: 3 6415 VENIPUNCT, ROUTINE* * Follow Up: 4 Weeks * Images: Billing Information: * Visit Code: 54150 Office Visit, Est Pt., Level 4. * Procedure Codes: 53357 VENIPUNCT, ROUTINE*. * Electronic signature of Antonio Taylor MD on 11/10/2025 at 10:26 AM EST Sign off status: Pending * Provider: Antonio Taylor M.D. Date: 01/01/2025 Generated for Arminda garcia/Americo/Carmellaransmitting on: 01/11/2025 10:26 AM EST History and Physical Notes * HPI (History of Present Illness) Category Sub-Category Detail Notes Category Not es Cardiology Blood Pressure Elevated Pt is here today for 6 month check up on Hypertension. Pt states he does check his BP occasionally and it has been doing good. Pt is fasting and is needing a refill for rosuvastatin and Temazepam sent to [facility] in [place] See 04/15/25 Cardiology evaluation. Insurance did not cover testing and echo and myoview wer NOT DONE and there was no follow-up. Sinus bradycardia. Examination Category Sub-Category Detail Notes Category Not es General Examination HEENT: inflammed pt yrigium of OS lateral aspect. , PERRLA Heart: sinus bradycardia, 4 4 Lungs: clear to auscultatio n Abdomen: Ventral diastasis, u mbilical hernia Extremities: trace leg edema General Appearance: NAD Skin: normal, no rash Neurologic Exam: Intact, gait normal Neck: supple, no lymphaden opathy Oral cavity: no lesions, mucosa m oist and WNL, no erythema Peripheral pulses: normal Back: dorsal kyphosis Chest: normal shape and exp ansion Consultation Request Notes Referral Date Referring Provider Referred Provider Not es 10/31/2025 Antonio Taylor , micha P SA
--- OUTSIDE RECORDS SUMMARY | 2025-11-10 10:27 | XMS_ITS | Patient Health Record ---
[facility] Address [address] [facility] [address] [facility] [address] [place] [id number] Care Team Providers Care Head Butler Name Role Phone Antonio Taylor Primary Care Provider Zarina Lopez Unavailable [phone] Allergies No Known Allergies Results Component Value Reference Range Notes P-Comprehensive Metabolic Pa rhonda (CMP) Reviewed date:04/21/2025 04:17:20 PM Interpretation:alt 78 Performing Lab: Notes/Report: Test performed by [facility] [address] [place] [address] , [address], [place] [address] Raymon Sauer MD, Gear Cutter CLIA: [id number] Sodium 141 135-145 mmol/L Potassium 4.6 3.5-5.3 [...] Interpretation:4.89 Performing Lab: Notes/Report: Test performed by [facility] [address] [place] [address] , [address], [place] [address] Raymon Sauer MD, Gear Cutter CLIA: [id number] PSA 4.89 <4.00 ng/mL Please note this is an ultrasensitive PSA assay with a lower limit of detection of 0.014 ng/mL. This test is performed by the María ECLIA methodology. Values obtained with different assay methods or kits cannot be directly compared. CT Scan : Chest, low dose Reviewed date:04/04/2025 04:10:06 PM Interpretation:nothing suspicious, annual f/u Performing Lab: Notes/Report: nothing suspicious, annual f/u P-Comprehensive Metabolic Pa rhonda (CMP) Reviewed date:11/03/2025 05:02:14 PM Interpretation:ALT 73 Performing Lab: Notes/Report: Test performed by [facility] [address] [place] [address] , [address], [place] [address] Reyna Barone MD, PhD, FCAP, [employer] CLIA: [id number] Sodium 140 135-145 mmol/L Potassium 4.5 3.5-5.3 [...] 37 Performing Lab: Notes/Report: Test performed by [facility] [address] [place] [address] [address], [place] [address] Reyna Barone MD, PhD, FCAP, [employer] CLIA: [id number] Lipid Panel Footnote See Below *Based on optimal reference values. Please refer to the DOS for additional information regarding diagnostic lipid reference ranges, patient management based on the recently updated lipid guidelines ([place] [employer]/[place] [employer] Task Force on Clinical Practice [...] Interpretation:5.41 Performing Lab: Notes/Report: Test performed by [facility] [address] [place] [address] , [address], [place] [address] Reyna Barone MD, PhD, [facility], [employer] CLIA: [id number] PSA 5.41 <4.00 ng/mL Please note this [...] Performing Lab: Notes/Report: Reason For Referral Reason chest pain Diagnosis 1 Chest pain, unspecif ied type (R07.9) [facility] Referring Provider First Name Antonio Pennington Referring Provider Last Name Brandon Referring Provider [facility] Referred Provider Specialty Cardiovascul ar Disease General Notes Sandra Mazariegos 2024 03:00:54 PM > faxed to [facility] Cardiology Referral Priority Routine Reason elevated PSA Diagnosis 1 Elevated PSA (R97.20 ) Referral Organization [facility] Referring Provider First Name Antonio Pennington Referring Provider Last Name Cadwell Referring Provider [facility] Referred Provider Specialty Urology General Notes Sandra Mazariegos 2024 01:55:33 PM > lvm for patient with appt date and time (11/10/2025 at 10:00am) Referral Priority Routine Medications Medication SIG (Take, Route, Frequency, Duration) [...] needed Orally Once a day 10/31/2025 Active Immunizations Vaccine Route Administration Date Status Comme nts Tetanus Tdap-Adacel (over 7yrs) IM Intramuscular 01/26/2019 Administered PNEUMOVAX 23 VACCINE IM Intramuscular 01/26/2019 Administe red Problems Problem Type SNOMED Code ICD Code Onset Dates Problem Status W/U Status Risk Notes Problem Essential hypertension (53030160) Essential hypertension (I10) Active confirmed Problem Body mass index 30+ - obesity (533108844) BMI 30.0-30.9,adult (Z68.30) Active confirmed Problem Physical examination, complete (60208814) Physical exam (Z00.00) Active confirmed Problem Insomnia (541443904) Other insomnia (G47.09) Active confirmed Problem Atherosclerotic heart disease of lummi coronary artery without angina pectoris (685407761202072) Coronary artery disease involving lummi coronary artery of lummi heart without angina pectoris (I25.10) Active confirmed Problem Hyperlipidaemia (65077892) Hyperlipidemia, unspecified hyperlipidemia type (E78.5) Active confirmed Problem Chest pain (65089354) Chest pain, unspecified type (R07.9) Active confirmed Problem Benign prostatic hypertrophy without outflow obstruction (909871696) Benign prostatic hyperplasia without lower urinary tract symptoms (N40.0) Active confirmed Problem Elevated PSA (116806438) Elevated PSA (R97.20) Active confirmed Vital Signs Heart Rate 43 /min 10/31/2025 Blood pressure diastolic 74 mm Hg 10/31/2025 Height 67 in 10/31/2025 Blood pressure systolic 140 mm Hg 10/31/2025 Weight 195.4 lbs 10/31/2025 BMI 30.6 kg/m2 10/31/2025 Encounters Encounter Location Date Provider Diagnosis [facility] [address] [place] [id number] 03/24/2025 Antonio Taylor Essential hypertensi on I10 ; Elevated PSA R97.20 ; Chest pain, unspecified type R07.9 ; Hyperlipidemia, unspecified hyperlipidemia type E78.5 ; Other insomnia G47.09 and BMI 29.0-29.9,adult Z68.29 [facility] [address] [facility] [address] [place] [id number] 04/21/2025 Zarina Lopez Elevated prostate specific antigen [PSA] R97.20 ; Abdominal pain R10.9 and BMI 30.0-30.9,adult Z68.30 [facility] [address] [facility] [address] [place], [place] [id number] 10/31/2025 Antonio Taylor Sinus bradycardia R0 0.1 ; Pterygium of left eye H11.002 ; Essential hypertension I10 ; Elevated PSA R97.20 ; Other insomnia G47.09 and Hyperlipidemia, unspecified hyperlipidemia type E78.5 [facility] [address] [facility] [address] [facility] [address] [place], [place] [id number] 03/31/2025 Antonio Taylor [facility] [address] [facility] [address] [facility] [address] [place], [place] [id number] 05/05/2025 Antonio Taylor [facility] [address] [facility] [address] [facility] [address] [place] [id number] 05/26/2025 Antonio Taylor Hyperlipidemia, unspecified hyperlipidemia type E78.5 [facility] [address] [facility] [address] [facility] [address] [place], [place] [id number] 11/03/2025 Antonio Taylor Assessments Encounter Date Diagnosis (ICD Code) Assessment Notes Treatment Notes Treatment Clinical Notes Section Notes 03/24/2025 Essential hypertension (ICD-10 - I10) 03/24/2025 Elevated PSA (ICD-10 - R97.20) 04/21/2025 Abdominal pain (ICD-10 - R10.9) pain has resolved will continue PPI; [place] diet without spicy, salty,acidic, greasy,carbonat ed drinks, or caffeine 04/21/2025 Elevated prostate specific antigen [PSA] (ICD-10 - R97.20) will need to monitor PSA; has [address] Taylor; now without any urinary issues 05/26/2025 Hyperlipidemia, unspecified hyperlipidemia type (ICD-10 - E78.5) 10/31/2025 Sinus bradycardia (ICD-10 - R00.1) 10/31/2025 Pterygium of left eye (ICD-10 - H11.002) To go to [facility]. today 03/24/2025 Chest pain, unspecified type (ICD-10 - R07.9) 10/31/2025 Essential hypertension (ICD-10 - I10) 04/21/2025 BMI 30.0-30.9,adult (ICD-10 - Z68.30) 03/24/2025 Hyperlipidemia, unspecified hyperlipidemia type (ICD-10 - E78.5) 10/31/2025 Elevated PSA (ICD-10 - R97.20) 10/31/2025 Other insomnia (ICD-10 - G47.09) 03/24/2025 Other insomnia (ICD-10 - G47.09) 03/24/2025 BMI 29.0-29.9,adult (ICD-10 - Z68.29) 10/31/2025 Hyperlipidemia, unspecified hyperlipidemia type (ICD-10 - E78.5) 04/21/2025 Other Instructed to use lubricating eye drops for eye redness, watch diet if stomach problems come back, follow up as needed. Went over chest CT results, stable will do another in a year. PSA a little elevated- no issues urinating. Needs labs at next visit. Plan Of Treatment Next Appt Details Provider Name:Antonio Coffey , 11/28/2025 11:30:00 AM, [address] [facility] [address] [facility], [address], [place], [place], [id number], Insurance Providers Payer Name Payer Address Payer Phone Subscriber Number Group Number Insured Name Patient Relationship to Insured Coverage Start Date Coverage End Date ALISIA BARRAGAN [address] [place], [place] [phone] [id number] Myke Machado Self - patient is the insured Medical (General) History Medical History History ICD Code skin cancer, Dr. Marcano in [place] PSA WNL 07/22/22 Surgical History Surgery Date(Month/Year) heart cath 40-50% stenosis RCA 12/07/2016 Right Shoulder Repair - Dr. Mosquera at [facility] 03/02/2018 Hospitalization History Reason Date(Month/Year) [facility] /[facility] Oct 2021
[2025-11-10 11:18] LABS: Blood Urea Nitrogen 17 mg/dl (9-20); Creatinine,Serum 1.00 mg/dl (0.66-1.25); Estimated Glomerular Filt Rate 75 ml/min (>60); GFR (African American) 91 ML/MIN (>60)
[2025-11-10 14:56] LABS: Microscopic, Urine URINE MICROSCOPIC (MICROSCOPIC)
[2025-11-10 15:25] LABS: Bilirubin,Urine Negative (Negative); Color,Urine YELLOW (Yellow); Glucose,Urine (UA) Negative (Negative); Ketones,Urine Negative (Negative); Leukocyte Esterase,Urine Negative (Negative); PH,Urine 6.0 (5.0-8.5); Protein,Urine Negative (Negative); Specific Gravity, Urine 1.025 (1.005-1.030); Urobilinogen,Urine 0.2 EU/dl (0.2)
[2025-11-10 15:51] LABS: Bacteria,Urine Trace /lpf
[2025-11-11 11:12] LABS: PSA, Free 2.06 ng/mL
== END 2025-11-10 23:59 | disposition home or self-care (01) ==
LOC: LAB 10:24
PROVIDERS: PCP Family Medicine; Visit Provider Urology
DX: N40.0 Benign prostatic hyperplasia without lower urinary tract symptoms (principal); R53.83 Other fatigue
CPT/HCPCS: 36415; 81001; 82565; 84153; 84154; 84520; 87086